=== PATIENT | male | born 1985 | race African-American/Black ===

== ENCOUNTER 2019-06-04 22:47 | Emergency (ER) | payer SELFPAY ==
[2019-06-04 22:57] VITALS: BP 155/99; PULSE 82; TEMP 99; BMI 34.7
[2019-06-05] MEDS ORDERED: DIPHTH,PERTUSS(ACELL),TET 0.5 ML DISP.SYRIN IM ONE ×2 (00:01→00:25)
--- NOTE | 2019-06-05 00:50 | PDOC ---
History of Present Illness - General Chief Complaint: Injury Stated Complaint: FALL Time Seen by Provider: 06/05/19 00:01 History Source: Patient Exam Limitations: No Limitations - History of Present Illness Initial Comments: 06/05/19 00:50 HISTORY OF PRESENT ILLNESS: 34-year-old RHD male denies medical history presents emergency department for evaluation of right forearm lacerations. Patient reports he was at a wedding when he leaned back on a chair fell into a grassy area that had some broken glass is in bottles. Bottles cut him on the forearm. Patient applied a dressing to his arm and came to the emergency department immediately for evaluation. Patient is unsure of last tetanus shot. No recent travel or sick contacts. PAST MEDICAL HISTORY: Denies past medical history SURGICAL HISTORY: Denies ALLERGIES: No known drug allergies REVIEW OF SYSTEMS General/Constitutional: Denies fever or chills. Denies weakness, weight change. HEENT: Denies change in vision. Denies ear pain or discharge. Denies sore throat. Cardiovascular: Denies chest pain or shortness of breath. Respiratory: Denies cough, wheezing, or hemoptysis. Gastrointestinal: Denies nausea, vomiting, diarrhea or constipation. Denies rectal bleeding. Genitourinary: Denies dysuria, frequency, or change in urination. Musculoskeletal: Denies joint or muscle swelling or pain. Denies neck or back pain. Skin and breasts: see HPI Neurologic: Denies headache, vertigo, loss of consciousness, or loss of sensation. Psychiatric: Denies depression or anxiety. Endocrine: Denies increased thirst. Denies abnormal weight change. Hematologic/Lymphatic: Denies anemia, easy bleeding, or history of blood clots. Allergic/Immunologic: Denies hives or skin allergy. Denies latex allergy. PHYSICAL EXAM General Appearance: Well-appearing, appropriately dressed. No apparent distress , no intoxication. HEENT: EOMI, PERRLA, normal ENT inspection, normal voice, TMs normal, pharynx normal. No conjunctival pallor. No photophobia, scleral icterus. Neck: Supple. Trachea midline. No tenderness, rigidity, carotid bruit, stridor , lymphadenopathy, or thyromegaly. Respiratory/Chest: Lungs CTAB. No shortness of breath, chest tenderness, respiratory distress, accessory muscle use. No crackles, rales, rhonchi, stridor , wheezing, dullness Cardiovascular: RRR. S1, S2. No JVD, murmur, bradycardia, tachycardia. Vascular Pulses: Dorsalis-Pedis (R): 2+, Dorsalis-Pedis (L): 2+ Gastrointestinal/Abdominal: Normal bowel sounds. Abdomen soft, non-distended. No tenderness or rebound tenderness. No organomegaly, pulsatile mass, guarding, hernia, hepatomegaly, splenomegaly. Lymphatic: No adenopathy, tenderness. Musculoskeletal/Extremities: FROM of right wrist and fingers, normal capillary refill. Pelvis Stable. No CVA tenderness. No tenderness to extremities, pedal edema, swelling, erythema or deformity. Integumentary: Multiple deep lacerations present to patient's right forearm. Bleeding is well-controlled. 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 Fully oriented, alert. Appropriate mood/affect. Motor strength 5/5. No appreciable EOM palsy, facial droop or sensory deficit. 06/05/19 03:15 Past History - Past Medical History Allergies/Adverse Reactions: Allergies Allergy/AdvReac Type Severity Reaction Status Date / Time No Known Allergies Allergy Verified 06/04/19 22:57 Home Medications: Ambulatory Orders No Home Medications 0 dose .ROUTE UTDICT 06/13/12 COPD: No - Immunization History Td Vaccination: No Immunization Up to Date: No - Suicide/Smoking/Psychosocial Hx Smoking Status: No Smoking History: Never smoked Number of Cigarettes Smoked Daily: 0 *Physical Exam - Vital Signs Last Vital Signs Temp Pulse Resp BP Pulse Ox 99 F 82 18 155/99 99 06/04/19 22:54 06/04/19 22:54 06/04/19 22:54 06/04/19 22:54 06/04/19 22:54 ED Treatment Course - RADIOLOGY Radiology Studies Ordered: Category Date Time Status FOREARM- RIGHT [RAD] Stat Radiology 06/05/19 00:01 Ordered - Medications Given in the ED: ED Medications Discontinued Medications Generic Name Dose Route Start Last Admin Trade Name Freq PRN Reason Stop Dose Admin Diphtheria/Tetanus/Acell Pertussis 0.5 ml 06/05/19 00:01 06/05/19 00:25 Boostrix - IM 06/05/19 00:02 0.5 ml .ONCE ONE Administration Medical Decision Making - Medical Decision Making 06/05/19 03:17 A/P: 34-year-old male with multiple lacerations to right forearm Full range of motion of all fingers and wrist. X-rays of right forearm as read by me: No acute fractures or dislocations present. No radiopaque foreign bodies are noted. Laceration repair Consent obtained from patient's. Betadine prep perform the patient's right forearm Lidocaine 12 mL instilled intradermally surrounding all the lacerations Copious irrigation performed with greater than 1 L Lacerations repaired with 25 total sutures using 4-0 Prolene 4 deep sutures placed for layer closure using 4-0 gut Bacitracin applied Sterile dressing applied to wounds Discharge home 06/08/19 11:32 *DC/Admit/Observation/Transfer Diagnosis at time of Disposition: Laceration of arm, right, complicated Qualifiers: Encounter type: initial encounter Qualified Code(s): S41.111A - Laceration without foreign body of right upper arm, initial encounter - Discharge Dispostion Disposition: HOME Condition at time of disposition: Stable Decision to Admit order: No - Referrals - Patient Instructions Printed Discharge Instructions: DI for Laceration Repair With Dermabond, DI for Laceration Repair -- Complex Suture Additional Instructions: Keep wound clean and dry Avoid strenuous activity/exercise to create a hot or sweaty environment until sutures are removed Reapply bacitracin ointment 2 times a day until sutures are removed Return to emergency Department or private physician in 7-10 days for suture removal May use Tylenol or Motrin for pain relief Return immediately to emergency department for redness, swelling, pain, or signs of infection - Post Discharge Activity Forms/Work/School Notes: Back to Work
== END 2019-06-05 03:12 | disposition home or self-care (01) ==
LOC: JER 22:47
PROC: 3E0234Z Introduction of Serum, Toxoid and Vaccine into Muscle, Percutaneous Approach (ICD-10-PCS; principal; 2019-06-04)
PROC: 0JQG0ZZ Repair Right Lower Arm Subcutaneous Tissue and Fascia, Open Approach (ICD-10-PCS; 2019-06-04)
DX: S51.811A Laceration without foreign body of right forearm, initial encounter (principal); W01.110A Fall on same level from slipping, tripping and stumbling with subsequent striking against sharp glass, initial encounter; Y93.82 Activity, spectator at an event; Y92.89 Other specified places as the place of occurrence of the external cause; Y99.8 Other external cause status
CPT/HCPCS: 73090-TC-RT-FY; 90715; 99282-25